=== PATIENT | female | born 1960 ===

== ENCOUNTER 2018-05-27 19:58 | Emergency (ER) | payer MEDICAID, OTHER ==
[~2018-05-27] VITALS: Ht 162.6 cm; Wt 63.5 kg
[2018-05-27] MEDS ORDERED: CEFAZOLIN 1 G VIAL ONE (20:13)
[2018-05-27] MEDS ORDERED: SULFAMETH/TRIMETH 800/160 MG TABLET ONE (20:13)
[2018-05-27] MEDS ORDERED: CEFAZOLIN 1 G VIAL IM ONE (20:15)
[2018-05-27] MEDS ORDERED: SULFAMETH/TRIMETH 800/160 MG TABLET PO ONE (20:15)
[2018-05-27 20:31] LABS: BASOPHILS % (AUTO) 0.4 % (0.0-2.0); EOSINOPHILS % (AUTO) 0.8 % (0.0-7.0); HEMATOCRIT 37.5 % (31.2-41.9); HEMOGLOBIN 12.7 g/dL (10.9-14.3); LYMPHOCYTES # (AUTO) 1.5 K/uL (20.0-40.0); LYMPHOCYTES % (AUTO) 26.2 % (20.5-51.5); MEAN CORPUSCULAR HEMOGLOBIN 30.8 uug (24.7-32.8); MEAN CORPUSCULAR HGB CONC 34 g/dL (32.3-35.6); MEAN CORPUSCULAR VOLUME 90.6 fL (75.5-95.3); MONOCYTES # (AUTO) 0.5 K/uL (2.0-10.0); NEUTROPHILS # (AUTO) 3.7 K/uL (1.8-8.9); NEUTROPHILS % (AUTO) 63.6 % (38.5-71.5); PLATELET COUNT (AUTO) 202 K/uL (179-408); RED BLOOD CELL COUNT(AUTO) 4.14 MIL/uL (3.63-4.92); WHITE BLOOD COUNT (AUTO) 5.8 K/uL (3.8-11.8)
[2018-05-27 20:40] LABS: CREATININE 0.8 mg/dL (0.6-1.3)
[2018-05-27] MEDS ORDERED: KETOROLAC TROMETHAMINE 30 MG INJ ONE (21:15)
[2018-05-27] MEDS ORDERED: KETOROLAC TROMETHAMINE 30 MG INJ IM ONE (21:15)
--- NOTE | 2018-05-27 22:01 | NUR ---
Beckie dobson in ED - 05/27/18 at 2202 by JOE Patient discharged to home in stable conditon. Written and verbal after care instructions given. Patient verbalizes understanding of instructions.
--- NOTE | 2018-05-27 22:02 | NUR ---
Patient given written and verbal discharge instructions. Patient verbalizes understanding of instructions. Patient is ambulatory with steady gait. Refuses offer of [facility] placement. Patient given list of available shelters in surrounding area.
== END 2018-05-27 22:02 | disposition home or self-care (01) ==
LOC: ER 20:01
DX: L03.116 Cellulitis of left lower limb (principal); F17.290 Nicotine dependence, other tobacco product, uncomplicated; Z59.0 Homelessness
CPT/HCPCS: 36415; 73610; 80048; 83605; 85025; 85651; 87040 ×2; 96372 ×2; 99284; 99406; J0690; J1885; A4663